=== PATIENT | female | born 1965 | race Caucasian/White ===

== ENCOUNTER 2016-05-20 12:09 | Emergency (ER) | payer MEDICAID ==
[2016-05-20] MEDS ORDERED: ASPIRIN 81 MG CHEW TAB ONE (12:22)
[2016-05-20] MEDS ORDERED: KETOROLAC 30 MG/ML VIAL ONE (12:59)
== END 2016-05-20 15:03 | disposition home or self-care (01) ==
LOC: ER 12:09
DX: R07.89 Other chest pain (principal); I10 Essential (primary) hypertension; I34.1 Nonrheumatic mitral (valve) prolapse; F17.200 Nicotine dependence, unspecified, uncomplicated; Z79.82 Long term (current) use of aspirin
CPT/HCPCS: 36415; 71010; 80053; 82550; 83735; 84484; 85025; 85610; 85730; 93005; 96374